=== PATIENT | male | born 1980 | race African-American/Black ===

== ENCOUNTER 2017-01-21 21:08 | Emergency (ER) | payer OTHER ==
[~2017-01-21] VITALS: Ht 182.9 cm; Wt 124.7 kg
[2017-01-21 21:38] VITALS: BP 196/93
[2017-01-21] MEDS ORDERED: AMOX875T PO (21:48)
[2017-01-21] MEDS ORDERED: PRED50TA PO (21:48)
--- NOTE | 2017-01-21 21:48 | PHYS DOC ---
Past Medical History Past Medical History: No Pertinent History Past Surgical History: No Surgical History Alcohol Use: Occasionally Drug Use: None Adult General Chief Complaint Chief Complaint: SORE THROAT HPI HPI Patient is a 36 year old male who presents with right-sided sore throat for 3 days. Patient denies any fever. Review of Systems Review of Systems Constitutional: Denies fever or chills [] Eyes: Denies change in visual acuity, redness, or eye pain [] HENT: Reports right-sided sore throat, denies any Respiratory: Denies cough or shortness of breath [] Cardiovascular: No additional information not addressed in HPI [] GI: Denies abdominal pain, nausea, vomiting, bloody stools or diarrhea [] : Denies dysuria or hematuria [] Musculoskeletal: Denies back pain or joint pain [] Integument: Denies rash or skin lesions [] Neurologic: Denies headache, focal weakness or sensory changes [] All other systems were reviewed and found to be within normal limits, except as documented in this note. Allergies Allergies Allergies Coded Allergies Type Severity Reaction Last Updated Verified No Known Drug Allergies 01/21/17 No Physical Exam Physical Exam Constitutional: Well developed, well nourished, no acute distress, non-toxic appearance. [] HENT: Normocephalic, atraumatic, bilateral external ears normal, oropharynx moist, no oral exudates, nose normal. [] +2 tonsils with mild erythema with trace exudate, midline uvula +2 anterior cervical adenopathy. Eyes: PERRLA, EOMI, conjunctiva normal, no discharge. [] Neck: Normal range of motion, no tenderness, supple, no stridor. [] Cardiovascular:Heart rate regular rhythm, no murmur [] Lungs & Thorax: Bilateral breath sounds clear to auscultation [] Abdomen: Bowel sounds normal, soft, no tenderness, no masses, no pulsatile masses. [] Skin: Warm, dry, no erythema, no rash. [] Back: No tenderness, no CVA tenderness. [] Extremities: No tenderness, no cyanosis, no clubbing, ROM intact, no edema. [] Neurologic: Alert and oriented X 3, normal motor function, normal sensory function, no focal deficits noted. [] Psychologic: Affect normal, judgement normal, mood normal. [] Current Patient Data Vital Signs Vital Signs Date Time Temp Pulse Resp B/P (MAP) Pulse Ox O2 Delivery O2 Flow Rate FiO2 01/21/17 21:38 98.4 80 16 97 Room Air 98.4 EKG EKG [] Radiology/Procedures Radiology/Procedures [] Course & Med Decision Making Course & Med Decision Making Pertinent Labs and Imaging studies reviewed. (See chart for details) Patient has acute tonsillitis. Be discharged with prednisone and amoxicillin. Recommended ibuprofen and Tylenol for pain or fever. Saltwater gargles recommended. Follow-up with primary care doctor in one week. Provided return precautions and discharged in stable condition. Dragon Disclaimer Dragon Disclaimer This electronic medical record was generated, in whole or in part, using a voice recognition dictation system. Departure Departure Impression: Primary Impression: Acute tonsillitis Disposition: 01 HOME, SELF-CARE Condition: STABLE Referrals: NO PCP (PCP) follow up with your doctor in one week Patient Instructions: Tonsillitis Additional Instructions: You were seen with acute tonsillitis/throat infection. Take the prescribed antibiotics as ordered. Take the prednisone for 5 days. Take ibuprofen as needed for pain or fever. You can also take Tylenol. Use saltwater gargles. Follow-up with your own doctor in one week. Come back to the ED if symptoms worsen. Scripts Prednisone (PREDNISONE) 50 Mg Tablet 1 TAB PO DAILY, #5 TAB Prov: RUBEN NIETO APRN 01/21/17 Amoxicillin (AMOXICILLIN) 875 Mg Tablet 1 TAB PO BID, #20 TAB Prov: RUBEN NIETO APRN 01/21/17 Problem Qualifiers Primary Impression: Acute tonsillitis Pharyngitis/tonsillitis etiology: unspecified etiology Qualified Codes: J03.90 - Acute tonsillitis, unspecified RUBEN NIETO APRN Jan 21, 2017 21:48
== END 2017-01-21 21:53 | disposition home or self-care (01) ==
LOC: ER 21:08
DX: J03.90 Acute tonsillitis, unspecified (principal)
CPT/HCPCS: 99283